=== PATIENT | female | born 1985 | race Caucasian/White ===

== ENCOUNTER 2016-04-03 10:47 | Emergency (ER) | payer MEDICAID ==
[2016-04-03] MEDS ORDERED: OPTIRAY 350 100 ML VIAL HMH IV ONE (10:48)
[2016-04-03] MEDS ORDERED: ONDANSETRON 4 MG VIAL ONE (13:37)
[2016-04-03] MEDS ORDERED: SODIUM CHLORIDE 0.9% 1,000 ML ONE (13:38)
== END 2016-04-03 18:35 | disposition home or self-care (01) ==
LOC: ER 10:47
DX: R10.9 Unspecified abdominal pain (principal); B37.3 Candidiasis of vulva and vagina; K59.00 Constipation, unspecified
CPT/HCPCS: 36415; 74020; 74177; 80053; 81001; 83690; 84703; 85025; 87088; 87491; 87591; 87800; 96361; 96374